=== PATIENT | female | born 1980 | race African-American/Black ===

== ENCOUNTER 2020-08-20 01:53 | Emergency (ER) | payer OTHER ==
[~2020-08-20] VITALS: Ht 175.3 cm; Wt 100.0 kg
--- NOTE | 2020-08-20 02:16 | PHYS DOC ---
Past Medical History Past Medical History: No Pertinent History, GERD Smoking Status: Never Smoker General Adult EDM: Chief Complaint: CHEST PAIN HPI: HPI: Patient is a 40 year old who arrives with chief complaint of chest pain. Patient was working in [email or web address] began having substernal chest cramping that nonradiating and currently 8 out of 10. Pain is constant but i ntermittently gets worse with waves. Patient states is not worse with deep breaths or any activities. Patient denies any nausea vomiting or diarrhea. Patient denies any cough or recent URI symptoms. Patient does have some mild shortness of breath associated with it. Review of Systems: Review of Systems: Constitutional: Denies fever or chills. [] Eyes: Denies change in visual acuity. [] HENT: Denies nasal congestion or sore throat. [] Respiratory: Denies cough + shortness of breath Cardiovascular: Planes of chest pain but no edema. [] GI: Denies abdominal pain, nausea, vomiting, bloody stools or diarrhea. [] : Denies dysuria. [] Musculoskeletal: Denies back pain or joint pain. [] Integument: Denies rash. [] Neurologic: Denies headache, focal weakness or sensory changes. [] Endocrine: Denies polyuria or polydipsia. [] Lymphatic: Denies swollen glands. [] Psychiatric: Denies depression or anxiety. [] Heart Score: HEART Score for Chest Pain: HEART Score for Chest Pain Response (Comments) Value History Slighlty/Non-Suspicious 0 ECG Nonspecific Repolarizatio 1 Age < 45 0 Risk Factors No Risk Factors 0 Troponin < Normal Limit 0 Total 1 Risk Factors: Risk Factors: DM, Current or recent (<one month) smoker, HTN, HLP, family history of CAD, obesity. Risk Scores: Score 0 - 3: 2.5% MACE over next 6 weeks - Discharge Home Score 4 - 6: 20.3% MACE over next 6 weeks - Admit for Clinical Observation Score 7 - 10: 72.7% MACE over next 6 weeks - Early Invasive Strategies Current Medications: Current Medications Ketorolac Tromethamine (Toradol 15mg Vial) 15 mg 1X ONCE IVP ; Start 08/20/20 at 02:30; Stop 08/20/20 at 02:31; Status DC Multi-Ingredient Mouthwash/Gargle (Gi Cocktail) 20 ml 1X ONCE SWSW Last administered on 08/20/20at 02:25; Start 08/20/20 at 02:30; Stop 08/20/20 at 02:31; Status DC Potassium Chloride (Klor-Con) 20 meq 1X ONCE PO ; Start 08/20/20 at 04:00; Stop 08/20/20 at 04:01; Status UNV Physical Exam: PE: Constitutional: Well developed, well nourished, no acute distress, non-toxic appearance. [] HENT: Normocephalic, atraumatic, bilateral external ears normal, no trismus nose normal. [] Eyes: PERRLA, EOMI, conjunctiva normal, no discharge. [] Neck: Normal range of motion, no tenderness, supple, no stridor. [] No meningeal signs Cardiovascular:Heart rate regular rhythm, peripheral pulse intact cap refill is brisk Lungs & Thorax: Bilateral breath sounds clear, no respiratory distress Abdomen: soft, no tenderness, no masses, no pulsatile masses. [] Skin: Warm, dry, no erythema, no rash. [] Back: No tenderness, no CVA tenderness. [] Extremities: No tenderness, no cyanosis, no clubbing, ROM intact, no edema. [] Neurologic: Alert and oriented X 3, normal motor function, normal sensory function, no focal deficits noted. [] Psychologic: Affect normal, judgement normal, mood normal. [] Current Patient Data: Labs: Laboratory Tests Test 08/20/20 02:15 White Blood Count 9.9 x10^3/uL Red Blood Count 4.63 x10^6/uL Hemoglobin 12.0 g/dL Hematocrit 36.6 % Mean Corpuscular Volume 79 fL Mean Corpuscular Hemoglobin 26 pg Mean Corpuscular Hemoglobin Concent 33 g/dL Red Cell Distribution Width 16.1 % Platelet Count 278 x10^3/uL Neutrophils (%) (Auto) 64 % Lymphocytes (%) (Auto) 27 % Monocytes (%) (Auto) 7 % Eosinophils (%) (Auto) 1 % Basophils (%) (Auto) 1 % Neutrophils # (Auto) 6.3 x10^3/uL Lymphocytes # (Auto) 2.7 x10^3/uL Monocytes # (Auto) 0.7 x10^3/uL Eosinophils # (Auto) 0.1 x10^3/uL Basophils # (Auto) 0.1 x10^3/uL D-Dimer (Nena) 0.35 ug/mlFEU Sodium Level 136 mmol/L Potassium Level 3.3 mmol/L Chloride Level 103 mmol/L Carbon Dioxide Level 25 mmol/L Anion Gap 8 Blood Urea Nitrogen 15 mg/dL Creatinine 1.2 mg/dL Estimated GFR (Cockcroft-Gault) 50.3 BUN/Creatinine Ratio 13 Glucose Level 91 mg/dL Calcium Level 9.1 mg/dL Total Bilirubin 0.5 mg/dL Aspartate Amino Transf (AST/SGOT) 13 U/L Alanine Aminotransferase (ALT/SGPT) 13 U/L Alkaline Phosphatase 44 U/L Troponin I Quantitative < 0.017 ng/mL Total Protein 7.4 g/dL Albumin 3.6 g/dL Albumin/Globulin Ratio 0.9 Lipase 97 U/L Serum Test, Qualitative Negative Current Medications Medications (Trade) Dose Ordered Sig/Jaida Route PRN Reason Start Time Stop Time Status Last Admin Dose Admin Ketorolac Tromethamine (Toradol 15mg Vial) 15 mg 1X ONCE IVP 08/20/20 02:30 08/20/20 02:31 DC Multi-Ingredient Mouthwash/Gargle (Gi Cocktail) 20 ml 1X ONCE SWSW 08/20/20 02:30 08/20/20 02:31 DC 08/20/20 02:25 Potassium Chloride (Klor-Con) 20 meq 1X ONCE PO 08/20/20 04:00 08/20/20 04:01 UNV EKG: EKG: [] EKG interpreted by me normal sinus rhythm with a rate of 97, normal axis normal intervals, nonspecific ST changes Radiology/Procedures: Radiology/Procedures: [][facility] [address] [place], [place] [id number] IMAGING REPORT Signed PATIENT: BERNARDINO CARROLLACCOUNT: [id number] : 1980 LOCATION: ER AGE: 40 SEX: F EXAM STATUS: PRE ER ORD. PHYSICIAN: DEVON HERNANDEZ MD REASON: CP PROCEDURE: PORTABLE CHEST 1V XR CHEST 1V 08/20/2020 2:12 AM INDICATION: Chest pain COMPARISON: None available TECHNIQUE: Portable frontal view of the chest is provided. FINDINGS: The cardiomediastinal silhouette is within normal limits. Lungs are clear. There are no significant pleural effusions. There is no pulmonary vascular congestion. No pneumothorax. No suspicious osseous abnormality. IMPRESSION: There is no acute cardiopulmonary process. Electronically signed by: Micky Sims MD (08/20/2020 2:46 AM) [facility] DICTATED and SIGNED BY: MICKY SIMS MD DATE: 08/20/20 [id number] 0 Course & Med Decision Making: Course & Med Decision Making Pertinent Labs and Imaging studies reviewed. (See chart for details) [] 40-year-old female presents with chest pain patient has a heart score of 1. Doubt acute coronary syndrome. Patient has a negative D-dimer and low risk, doubt pulmonary embolism or thoracic aortic dissection. Patient reassessed at 4 AM and resting comfortably. Patient stable for discharge outpatient follow-up. Return precautions given. Dragon Disclaimer: Dragon Disclaimer: This electronic medical record was generated, in whole or in part, using a voice recognition dictation system. Departure Departure Impression: Primary Impression: Chest pain Disposition: 01 DC HOME SELF CARE/HOMELESS Condition: STABLE Referrals: COLLEEN FORBES MD 2-3 DAYS Patient Instructions: Chest Pain (Nonspecific) Additional Instructions: EMERGENCY DEPARTMENT GENERAL DISCHARGE INSTRUCTIONS THANK YOU for coming to [facility] Emergency Department (ED) today and trusting us with your care. We trust that you had a positive experience in our Emergency Department. If you wish to speak to the department Management you can contact the sack department supervisor at . YOUR FOLLOW UP INSTRUCTIONS ARE FOLLOWS: Do you have a private doctor? If you do not have a private doctor, please ask for a resource list of physicians or clinics that may be able to assist you with follow up care. The Emergency Physician has interpreted your x-rays. The X-ray specialist will also review them. If there is a change in the findings you will be notified in 48 hours when at all possible. A lab test or lab culture may have been done, your results will be reviewed and you will be notified if you need a change in treatment. ADDITIONAL INSTRUCTIONS AND INFORMATION Your care today has been supervised by a physician who is specially trained in emergency care. Many problems require more than one evaluation for a complete diagnosis and treatment. We recommend that you schedule your follow up appointment as recommended to ensure complete treatment of your illness or injury. If you are unable to obtain follow up care and continue to have a problem, or if your condition worsens we recommend that you return to the ED. We are not able to safely determine your condition over the phone nor are we able to give sound medical advice over the phone. For these safety reasons, if you call for medical advice we will ask you to come to the ED for further evaluation If you have any questions regarding these discharge instructions please call the ED at . SAFETY INFORMATION In the interest of safety, wellness, and injury prevention; we encourage you to wear your seatbelt, if you smoke; quit smoking, and we encourage your family to use protective helmet for bicycling and other sporting events that present an increased risk for head injury. IF YOUR SYMPTOMS WORSEN OR NEW SYMPTOMS DEVELOP, OR YOU HAVE CONCERNS ABOUT YOUR CONDITION; OR IF YOUR CONDITION WORSENS WHILE YOU ARE WAITING FOR YOUR FOLLOW UP APPOINTMENT; EITHER CONTACT YOUR PRIMARY CARE DOCTOR, THE PHYSICIAN WHOSE NAME AND NUMBER YOU WERE GIVEN, OR RETURN TO THE ED IMMEDIATELY. Scripts Esomeprazole Magnesium (NEXIUM CAPSULE) 40 Mg Capsule.dr 1 CAP PO DAILY, #30 CAP 0 Refills Prov: DEVON HERNANDEZ MD 08/20/20 DEVON HERNANDEZ MD Aug 20, 2020 02:15
[2020-08-20 02:22] LABS: BASO # 0.1 x10^3/uL (0.0-0.2); BASO % 1 % (0-3); EOS # 0.1 x10^3/uL (0.0-0.7); EOS % 1 % (0-3); HEMATOCRIT 36.6 % (36.0-47.0); LYMPH # 2.7 x10^3/uL (1.0-4.8); LYMPH % 27 % (24-48); MEAN CORPUSCULAR HEMOGLOBIN 26 pg (25-35); MEAN CORPUSCULAR HGB CONC 33 g/dL (31-37); MEAN CORPUSCULAR VOLUME 79 fL (79-100); MONO # 0.7 x10^3/uL (0.0-1.1); MONO % 7 % (0-9); NEUT # 6.3 x10^3/uL (1.8-7.7); NEUT % 64 % (31-73); PLATELET COUNT 278 x10^3/uL (140-400); RED BLOOD COUNT 4.63 x10^6/uL (3.50-5.40); RED CELL DISTRIBUTION WIDTH 16.1 % (11.5-14.5); WHITE BLOOD COUNT 9.9 x10^3/uL (4.0-11.0)
[2020-08-20] MEDS ORDERED: KETOROLAC 15 MG/ML VIAL. IVP ONE (02:30)
[2020-08-20] MEDS ORDERED: LIDO:MAALOX 1:1 20 ML SINGLE DOSE. SWSW ONE (02:30)
[2020-08-20 02:31] LABS: CALCIUM 9.1 mg/dL (8.5-10.1); CREATININE 1.2 mg/dL (0.6-1.0); GFR 50.3; POTASSIUM 3.3 mmol/L (3.5-5.1)
[2020-08-20 02:35] LABS: PREG TEST PT QUAL NEGATIVE (NEG)
[2020-08-20 02:37] LABS: ALBUMIN 3.6 g/dL (3.4-5.0); ALBUMIN/GLOBULIN RATIO 0.9 (1.0-1.7); TOTAL BILIRUBIN 0.5 mg/dL (0.2-1.0); TOTAL PROTEIN 7.4 g/dL (6.4-8.2)
--- NOTE | 2020-08-20 02:48 | RAD ---
XR CHEST 1V 08/20/2020 2:12 AM INDICATION: Chest pain COMPARISON: None available TECHNIQUE: Portable frontal view of the chest is provided. FINDINGS: The cardiomediastinal silhouette is within normal limits. Lungs are clear. There are no significant pleural effusions. There is no pulmonary vascular congestion. No pneumothora x. No suspicious osseous abnormality. IMPRESSION: There is no acute cardiopulmonary process. Electronically signed by: Elena Brooks MD (08/20/2020 2:46 AM) JHONATAN
[2020-08-20 04:06] VITALS: BP 130/73
[2020-08-20] MEDS ORDERED: ESOM40CA PO (04:10)
[2020-08-20] MEDS ORDERED: POTASSIUM CHLORIDE 20 MEQ TABLET.ER. PO ONE (04:15)
--- NOTE | 2020-08-22 12:20 | EKG ---
[facility] [address] [place] [address] Test Date: 2020-08-20 Test Time: 02:08:45 Pat Name: BERNARDINO CARROLL Department: Room: Gender: F [employer] Machine: : 1980 Requested By: DEVON HERNANDEZ Order Number: [id number] Reading MD: Measurements Intervals Starlight Rate: 97 P: -16 LA: 114 QRS: 71 QRSD: 90 T: 35 QT: 362 QTc: 464 Interpretive Statements SINUS RHYTHM LEFT ATRIAL ABNORMALITY QRS(T) CONTOUR ABNORMALITY CONSIDER ANTEROLATERAL MYOCARDIAL DAMAGE ABNORMAL ECG RI6.01 No previous ECG available for comparison
== END 2020-08-20 04:49 | disposition home or self-care (01) ==
LOC: ER 01:53
DX: R07.89 Other chest pain (principal); R06.02 Shortness of breath; K21.9 Gastro-esophageal reflux disease without esophagitis
CPT/HCPCS: 36415; 71045; 80053; 83690; 84484; 84703; 85025; 85379; 93005; 99285